=== PATIENT | female | born 1995 | race Two or more races ===

== ENCOUNTER 2024-05-29 20:12 | Observation (INO) | payer MEDICAID, OTHER ==
[2024-05-29 21:20] LABS: Vaginal Trichomonas Not Present
[2024-05-29 21:21] LABS: Vaginal Bacteria Moderate; Vaginal Clue Cells Moderate; Vaginal Epithelial Cells Moderate
--- NOTE | 2024-05-30 09:55 | DVHDS2 ---
Obstetrics Discharge Summary Obstetrics Discharge Summary Date of Admission: May 29, 2024 Date of Discharge: May 29, 2024 Reason For Admission: Observational/Evaluation DERRICK MORILLO DO May 30, 2024 09:55
== END 2024-05-29 22:08 | disposition home or self-care (01) ==
LOC: LDRP 20:12
PROVIDERS: ADMIT Obstetrics & Gynecology; ATTEND Obstetrics & Gynecology
DX: O26.893 Other specified pregnancy related conditions, third trimester (principal); N89.8 Other specified noninflammatory disorders of vagina; Z98.890 Other specified postprocedural states; Z79.899 Other long term (current) drug therapy; Z3A.00 Weeks of gestation of pregnancy not specified
CPT/HCPCS: 59025; 81002; 87210; G0378

== ENCOUNTER 2024-07-11 19:55 | Observation (INO) | payer MEDICAID ==
[~2024-07-11] VITALS: Ht 152.4 cm; Wt 78.0 kg
[2024-07-11] MEDS: TERBUTALINE SULFATE 1 MG/ML 1ML VIAL SC SCH (21:22)
--- NOTE | 2024-07-11 21:28 | DVH ---
US BIOPHYSICAL PROFILE US OB LIMITED CLINICAL HISTORY: DECREASED MOVEMENT COMPARISON: No prior studies available for comparison. TECHNIQUE: Real-time grayscale, color flow and M-mode imaging of the gravid uterus is performed. FINDINGS: Single living intrauterine gestation. Cephalic presentation. heart rate 127 beats per minute. Average ultrasound age 35 weeks 3 days. Estimated due date 08/12/2024. Placenta is posterior. No evidence of previa or abruption at this time. Cervix measures approximatel y 4.6 cm in length and appears closed. measurements (cm): BPD 8.75, HC 31.9, AC 31.0, FL 6.9. Estimated weight: 2635g Amniotic fluid index: 10.8 cm Biophysical profile: 8 out of 8. (2 breathing, 2 activity, 2 tone, 2 TIERNEY) IMPRESSION: Single living intrauterine gestation as above. Biophysical profile scoring 8 out of 8.
[2024-07-11 21:33] LABS: Urine Bacteria None Seen /hpf (None Seen)
[2024-07-11 21:42] LABS: Urine Blood Negative /uL (Negative); Urine Clarity Clear (Clear); Urine Color Yellow (Yellow); Urine Protein, UAD Negative (Negative); Urine Specific Gravity 1.017 (1.001-1.035); Urine Squamous Epithelial Cell FEW /hpf (<5); Urine Urobilinogen Normal (Negative); Urine WBC 2 /HPF (0-5); Urine pH 5.5 (5.0-9.0)
[2024-07-11 21:59] LABS: Amphetamine Screen, Urine Neg (NEGATIVE); Barbiturate Scree,Urine Neg (NEGATIVE); Benzodiazephine Screen, Urine Neg (NEGATIVE); Cannabinoid Screen, Urine Neg (NEGATIVE); Cocaine Screen, Urine Neg (NEGATIVE); Opiate Scree,Urine Neg (NEGATIVE); Phencyclidine Screen, Urine Neg (NEGATIVE)
[2024-07-11 22:13] LABS: Vaginal Bacteria Few; Vaginal Clue Cells None Seen; Vaginal Epithelial Cells Moderate; Vaginal Trichomonas Not Present
[2024-07-11] MEDS: NIFEdipine 10 MG CAP PO PRN (22:58)
[2024-07-11] MEDS: LACTATED RINGER'S 1,000 ML IV ONE (23:00)
[2024-07-11] MEDS: LACTATED RINGER'S 1,000 ML IV SCH (23:00)
[2024-07-11] MEDS: CALCIUM CARB 500 MG CHEW TAB PO ONE (23:21)
--- NOTE | 2024-07-12 01:44 | DVHDS2 ---
Physician Discharge Progress N Final Diagnosis: IUP at 36w 1d contractions Not In labor Other Interventions Other Interventions G6, 5005 with EDC of 08/07/24, IUP at 36w 1d presents to place reports lower abd pressures Reports normal movements, no leakage of fluid or vaginal bleeding She reports late care with Dr Coffman, was 8months when she had an ultrasound Just started care with Dr Coffman last month later reports heartburn O: A&O x3 Appears uncomfortable No CVA tenderness Frequent UCs noted on EFM FHR baseline 135bpm, accelerations present, no deceleration VE cervix closed & posterior Wet [place] neg for april, clue cells and Trichomonas UA: Neg. A: IUP at 36w 1 d UCs P: OB US & Biophysical profile IV hydration Tocolysis with Terbutaline then Procardia Calcium Carbonate 500mg PO Re-assessment US report reviewed: BPP 01/14, cervical length 4. cm UCs resolved Pt verbalized she feels much better FHR baseline 155bpm with accelerations present, no deceleration VE: no cervical change P: Discharge home Pt to Schedule follow appointment with OB provider immediately 3rd trimester emergency S&S [facility], PTL & pre-eclampsia precautions reviewed with pt; advised to seek health care if any Condition on Discharge: Stable Disposition: Home Discharge Instructions: Diet: Regular Diet comment: Ensure adequate hydration Activity: No Restrictions, As Tolerated Activity comment: Balance activities with rest periods. Follow Up/Referral: Pt advised to Schedule OB follow appointment with OB provider immediately Medications: none Follow Up Care: Discharge Statement: "Patient was advised to return to the ER or call 911 if any headaches, dizzi ness, shortness of breath, chest pain, abdominal pain, bleeding, fevers, or worsening of medical condition. Patient was counseled about treatment plan, medications, possible side effects, patientverbalized understanding. All questions were answered to the best of my ability. This discharge took greater then 30 minutes in planning, reviewing documentation, counseling the patient, and discussing with other team members." MARY JO MCCLURE CNM Jul 12, 2024 01:44
== END 2024-07-12 00:53 | disposition home or self-care (01) ==
LOC: LDRP 19:55
PROVIDERS: ADMIT Obstetrics & Gynecology; ATTEND Obstetrics & Gynecology
DX: O60.03 Preterm labor without delivery, third trimester (principal); Z98.890 Other specified postprocedural states; Z79.899 Other long term (current) drug therapy; Z3A.36 36 weeks gestation of pregnancy
CPT/HCPCS: 59025; 76805; 76817; 76818; 80307; 81001; 81002; 87210; 94760; 96360; 96361; 96372; G0378; J3105; 96365; 96366